=== PATIENT | male | born 1975 | race Caucasian/White ===

== ENCOUNTER 2024-04-11 23:34 | Emergency (ER) | payer MEDICAID ==
[~2024-04-11] VITALS: Ht 170.2 cm; Wt 90.0 kg
[2024-04-11 23:36] VITALS: BP 104/82; PULSE 100; RESP 16; TEMP 98; O2SAT 100
[2024-04-12] MEDS ORDERED: IPRATROPIUM BROMIDE 0.5 MG/2.5 ML NEB SOLUTION NEB ONE (01:00)
[2024-04-12] MEDS ORDERED: PredniSONE 20 MG TABLET PO ONE (01:00)
[2024-04-12] MEDS ORDERED: ALBUTEROL SULFATE 2.5 MG/0.5 ML NEB SOLUTION NEB ONE (01:00)
[2024-04-12] MEDS ORDERED: ALBU18HF12 IH (02:53)
[2024-04-12] MEDS ORDERED: PRED-554 PO (02:53)
== END 2024-04-12 03:57 | disposition left against medical advice (07) ==
LOC: EMS 23:35
DX: J40 Bronchitis, not specified as acute or chronic (principal); R05.9 Cough, unspecified; R06.02 Shortness of breath
CPT/HCPCS: 71045; 93005; 99283